=== PATIENT | female | born 1990 | race Caucasian/White ===

== ENCOUNTER → 2020-04-06 09:12 | Outpatient (BNVA) | payer OTHER, SELFPAY | PROVIDERS: Family Provider Registered Nurse; PCP Registered Nurse; Visit Provider Registered Nurse | DX: E03.9 Hypothyroidism, unspecified (principal); R00.2 Palpitations; Z00.00 Encounter for general adult medical examination without abnormal findings | CPT/HCPCS: 84439; 84443; 84480; 85025 ==

== ENCOUNTER → 2021-10-03 08:33 | Outpatient (BNVA) | payer OTHER, SELFPAY | PROVIDERS: Family Provider Registered Nurse; PCP Registered Nurse; Referring Provider Registered Nurse; Visit Provider Internal Medicine | DX: E89.0 Postprocedural hypothyroidism (principal); R00.2 Palpitations; N94.2 Vaginismus; E16.1 Other hypoglycemia; Z86.39 Personal history of other endocrine, nutritional and metabolic disease; Z92.3 Personal history of irradiation | CPT/HCPCS: 99204 ==

== ENCOUNTER 2022-02-10 06:00 | Outpatient (RCR) | payer OTHER, SELFPAY | END 2022-03-11 23:59 | disposition home or self-care (01) | LOC: MPT 06:00 | PROVIDERS: Family Provider Registered Nurse; PCP Registered Nurse; Referring Provider Nurse Practitioner Family; Visit Provider Nurse Practitioner Family | DX: N94.10 Unspecified dyspareunia (principal) | CPT/HCPCS: 97110; 97112; 97161; 97530 ==

== ENCOUNTER 2022-03-12 06:00 | Outpatient (RCR) | payer OTHER, SELFPAY | END 2022-04-11 23:59 | disposition home or self-care (01) | LOC: MPT 06:00 | PROVIDERS: Family Provider Registered Nurse; PCP Registered Nurse; Referring Provider Nurse Practitioner Family; Visit Provider Nurse Practitioner Family | DX: N94.10 Unspecified dyspareunia (principal) | CPT/HCPCS: 20560; 97110; 97112; 97530 ==

== ENCOUNTER 2022-04-12 06:00 | Outpatient (RCR) | payer OTHER, SELFPAY | END 2022-05-11 23:59 | disposition home or self-care (01) | LOC: MPT 06:00 | PROVIDERS: Family Provider Registered Nurse; PCP Registered Nurse; Referring Provider Nurse Practitioner Family; Visit Provider Nurse Practitioner Family | DX: N94.10 Unspecified dyspareunia (principal) | CPT/HCPCS: 20560; 97110; 97112; 97530 ==

== ENCOUNTER 2022-05-12 06:00 | Outpatient (RCR) | payer OTHER, SELFPAY | END 2022-06-11 23:59 | disposition home or self-care (01) | LOC: MPT 06:00 | PROVIDERS: Family Provider Registered Nurse; PCP Registered Nurse; Referring Provider Nurse Practitioner Family; Visit Provider Nurse Practitioner Family | DX: N94.10 Unspecified dyspareunia (principal) | CPT/HCPCS: 20560; 97112; 97530 ==

== ENCOUNTER → 2022-05-18 09:01 | Outpatient (BNVA) | payer OTHER, SELFPAY | PROVIDERS: Family Provider Registered Nurse; PCP Registered Nurse; Visit Provider Registered Nurse | DX: N94.10 Unspecified dyspareunia (principal); N94.2 Vaginismus; E89.0 Postprocedural hypothyroidism; R59.0 Localized enlarged lymph nodes; F41.9 Anxiety disorder, unspecified | CPT/HCPCS: 82627; 82670; 82672; 84270; 84403 ==

== ENCOUNTER 2022-06-12 06:00 | Outpatient (RCR) | payer OTHER, SELFPAY | END 2022-07-12 23:59 | disposition home or self-care (01) | LOC: MPT 06:00 | PROVIDERS: Family Provider Registered Nurse; PCP Registered Nurse; Referring Provider Nurse Practitioner Family; Visit Provider Nurse Practitioner Family | DX: N94.10 Unspecified dyspareunia (principal) | CPT/HCPCS: 97110; 97112; 97530 ==

== ENCOUNTER 2022-07-26 | Outpatient (RCR) | payer OTHER, SELFPAY | END 2022-08-11 23:59 | disposition home or self-care (01) | LOC: MPT | PROVIDERS: Family Provider Registered Nurse; PCP Registered Nurse; Referring Provider Nurse Practitioner Family; Visit Provider Nurse Practitioner Family | DX: N94.10 Unspecified dyspareunia (principal) | CPT/HCPCS: 97110; 97112 ==

== ENCOUNTER 2023-02-23 07:52 | Outpatient (CLI) | payer OTHER, SELFPAY ==
--- NOTE | 2023-02-23 07:45 | US_ITS ---
WS: [id number] PELVIC ULTRASOUND REASON FOR EXAM: N94.10 - Unspecified dyspareunia COMPARISON: None available. ORDER DATE: 02/23/2023 8:02 AM TECHNIQUE: Grayscale and Doppler transabdominal and transvaginal pelvic ultrasound. FINDINGS: Uterus measures 7.6 cm x 4.4 cm x 3.0 cm, having normal echotexture. Endometrium is unremarkable kortney uring 2 mm thick area The right ovary measures 2.4 cm x 1.8 cm x 2.5 cm, and contains several subcentimeter follicles The left ovary measures 2.7 cm x 2.7 cm x 2.4, and contains several follicles and a dominant follicle nearly 14 mm in diameter. There is satisfactory Doppler blood flow in each adnexa. There is a slight increase in cul-de-sac flu id probably physiologic US/US pelv w/transvag [id number] IMPRESSION: Normal uterus. No evidence of adnexal abnormalities with follicles in each ovar y as noted above
== END 2023-02-23 07:53 | disposition home or self-care (01) ==
LOC: RAD 07:57
PROVIDERS: PCP Registered Nurse; Visit Provider Registered Nurse
DX: N94.10 Unspecified dyspareunia (principal); R10.2 Pelvic and perineal pain
CPT/HCPCS: 76830; 76856

== ENCOUNTER → 2023-12-27 07:43 | Outpatient (BNVA) | payer OTHER, SELFPAY | PROVIDERS: PCP Registered Nurse; Visit Provider Internal Medicine | DX: E89.0 Postprocedural hypothyroidism (principal); Z86.39 Personal history of other endocrine, nutritional and metabolic disease; Z92.3 Personal history of irradiation; Z79.890 Hormone replacement therapy | CPT/HCPCS: 99214 ==

== ENCOUNTER → 2024-03-13 08:02 | Outpatient (BNVA) | payer OTHER, SELFPAY | PROVIDERS: PCP Registered Nurse; Visit Provider Internal Medicine | DX: Z86.39 Personal history of other endocrine, nutritional and metabolic disease (principal); Z92.3 Personal history of irradiation; E89.0 Postprocedural hypothyroidism; Z79.890 Hormone replacement therapy | CPT/HCPCS: 99214 ==

== ENCOUNTER 2025-01-03 12:43 | Emergency (ER) | payer OTHER, SELFPAY ==
[2025-01-03 12:46] VITALS: BP 95/61; PULSE 102; RESP 16; TEMP 36.5; O2SAT 98; BMI 22.5
--- NOTE | 2025-01-03 13:39 | USR_ITS ---
PROCEDURE INFORMATION: Exam: US , Limited Exam date and time: 01/03/2025 2:04 PM Age: 34 years old Clinical indication: complicated by abdominal or pelvic pain; Right lower quadrant; Second trimester (14 weeks 0 days to 27 weeks 6 days); Gestational age or lmp: 14w o d; ; Additional info: Rlq abd pain, bloating, cramping, n/v. 14 w LABS AND CLINICAL REPORTS: Gestational age (Established): 13 w 5 d Estimated due date (Established): 07/06/2025 TECHNIQUE: Imaging protocol: Real-time ultrasound of the maternal uterus with image documentation. Exam focused on the clinical indication. COMPARISON: US pelv w/transvag [id number] 02/23/2023 8:16 AM FINDINGS: Gestation: There is a single living intrauterine . heart rate: 187 bpm BIOMETRY: Biparietal diameter (BPD): 2.36 cm. EGA (BPD) is 14 w 0 d. 46.6 % percentile Head circumference (HC): 8.91 cm. EGA (HC) is 14 w 0 d. 36.4 % percentile Femur length (FL): 1.35 cm. EGA (FL) is 14 w 0 d. 55.7 % percentile FL/HC: 15.15 FL/BPD: 57.2 MATERNAL: Cervix: Cervical length measures 3.9 cm. US/[place] limited [id number] IMPRESSION: There is a single living intrauterine with an estimated gestational age of 14 weeks and 0 days.
--- NOTE | 2025-01-03 13:45 | ED_ITS ---
HPI - 2 General: Chief complaint: OB/Uterine Contractions Stated complaint: 14wks Preg. /adom. pain / no bleeding Time Seen by Provider: 01/03/25 13:16 History of Present Illness: josef Ocampo is a 34-year-old female G1, , that presents to the emergency department with abdominal pain. She estimates 14 weeks and does have routine care with Dr. Shirley. Patient reports abdominal pain started last night at 9 PM. It started as epigastric abdominal pain that was crampy in nature. Quickly developed into right sided abdominal pain and now is localized more in the right lower quadrant. She has pain in the abdomen when she flexes and extends her hip flexor. She has rectal pain as well. She denies vaginal pain, suprapubic abdominal pain, vaginal bleeding. She denies fever or chills. She does have nausea but this is unchanged from baseline. She takes Zofran at home for nausea. She did have a bowel movement yesterday but feeling that she was constipated took some mag citrate and had some watery stools today. She states she has a history of gluten intolerance. Did eat gluten yesterday?pasta. Symptoms began after. 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 Associated symptoms: Reports abdominal pain, nausea and vomiting; Deny dysuria, headache(s), malaise or vaginal discharge Related Data Previous Rx's ?Medication ?Instructions ?Recorded estradiol 0.02%/testosterone 0.1% #1 ea 06/13/22 epinephrine 0.3 mg/0.3 mL 0.3 mg (0.3 mL) IM Q4H PRN 0 03/20/24 injection, auto-injector (EpiPen anaphylaxis 30 days # 2 ea 2-Benjie) buspirone 10 mg tablet See Rx Instructions .Route 0 04/22/24 .COMPLEX #45 tabs levothyroxine 100 mcg tablet See Rx Instructions .Rout e 10/20/24 .COMPLEX #90 tabs Allergies Allergy/AdvReac Type Severity Reaction Status Date / Time egg Allergy Unknown Verified 03/20/24 15:59 wheat Allergy Unknown Verified 03/20/24 15:59 Review of Systems 2 General: Reports: 10 or more systems reviewed and unremarkable except in HPI and below Const: Denies: fever(s), chills, change in appetite, change in weight, fatigue or malaise Card: Denies: chest pain or dyspnea on exertion Resp: Denies: dyspnea, productive cough, non-productive cough, wheezing, stridor or chest congestion GI: Reports: abdominal pain, nausea, vomiting, diarrhea, constipation and bloating; Denies: dysphagia, GI cramping or hematochezia : Denies: flank pain, difficulty voiding, dysuria, urinary frequency, urinary urgency, urinary hesitancy, oliguria, hematuria, vaginal bleeding, vaginal discharge or pelvic pain Musc: Denies: neck pain, back pain, extremity pain, joint pain, joint swelling, joint redness, joint warmth or muscle weakness Neuro: Denies: headache(s), numbness in extremities, weakness in extremities, sensory changes, lack of coordination, difficulty walking, frequent falls, dizziness, confusion, Slurred speech present, difficulty communicating thoughts, seizure-like activity or involuntary movements Endo: Denies: polyuria, polydipsia or tired all the time PFSH ED 2 PFSH: Medical History History of radioactive iodine thyroid ablation 2017 Dr. Gan ([facility]) Hypothyroidism Surgical History History of tonsillectomy (~2000) Family History Grandfather No problems noted. Grandmother Diabetes Paternal grandmother Hypertension Paternal grandmother Denies family history of Colon cancer Ovarian cancer Heart disease Hyperlipidemia Breast cancer Family history of thyroid problem Uterine cancer Stroke Social History Smoking and tobacco/nicotine status: never used tobacco/nicotine Alcohol intake: never Substance/Drug Use: never Additional social history: - Tobacco use: Denies Alcohol use: Denies Drug use: Denies Adopted: No Caregiver/support person: No Lives independently: No Household members: spouse Marital status: service: No Current occupational status: employed Sexually active: Yes Do you think of yourself as: Straight/Heterosexual Current gender identity: Female Physical Exam 2 Const: COMMON NORMALS: no acute distress, patient oriented x3 and alert G ENERAL APPEARANCE: cooperative ORIENTATION/CONSCIOUSNESS: Yes awake, Yes oriented to person, Yes oriented to place and Yes oriented to time Neck/C-Spine: COMMON NORMALS: full ROM GENERAL: Yes normal visual inspection Lymph: LYMPHATIC: no lymphadenopathy noted Chest: COMMONS NORMALS: normal inspection of the chest Breast/axilla inspection: Yes no chest deformity, asymmetry, normal contours, no nodules, masses, tenderness Resp: COMMON NORMALS: normal respiratory effort, No retractions, No use of accessory muscles and clear to auscultation bilaterally EFFORT & INSPECTION: Yes able to speak in complete sentences and Yes symmetric chest movement A USCULTATION: clear to auscultation bilaterally Cardio: COMMON NORMALS: regular rate, regular rhythm and Peripheral pulses 2+ throughout RATE: regular rate RHYTHM: regular rhythm PERIPHERAL PULSES: Peripheral pulses 2+ throughout GI: COMMON NORMALS: Soft to palpation and no masses INSPECTION: Yes normal to inspection AUSCULTATION: Yes Hyperactive bowel sounds present P ALPATION: Yes Soft to palpation and Yes Tenderness to palpation present (GI) Details: RLQ (Moderate to severe) and RUQ (Mild) RECTAL EXAM: deferred Extremity: COMMON NORMALS: normal to inspection GENERAL: Yes normal exam except as noted Neuro: COMMON NORMALS: patient oriented x3 SENSORIUM/ORIENTATION: Yes alert, Yes oriented to person, Yes oriented to place and Yes oriented to time CRANIAL NERVES: Yes CN normal except as noted Psych: COMMON NORMALS: mental status grossly normal, Normal thought process present, cooperative, activity/motor behavior normal, denies homicidal ideation and denies suicidal ideation THOUGHT PROCESS: Normal thought process present Skin: COMMON NORMALS: no rashes or lesions noted, no wounds and turgor normal GENERAL SKIN EXAM: no rashes or lesions noted and turgor normal Course 2 Vital Signs: Vital signs: Vital Signs Temperature 97.7 F 01/03/25 12:46 Pulse Rate 74 01/03/25 14:12 Respiratory Rate 16 01/03/25 12:46 Blood Pressure 101/68 01/03/25 14:12 Pulse Oximetry 100 01/03/25 14:12 Oxygen Delivery Me thod Room Air 01/03/25 14:12 MDM - OB/Uterine Contractions Medical Decision Making Patient is a-year-old female that presents to the emergency department with complaints of right-sided abdominal pain. Onset 9 PM last night and progressively worsening through the night. Patient underwent diagnostic evaluation for abdominal pain. Biliary colic, cholecystitis, cholelithiasis, cholangitis, colitis, gastritis, appendicitis, round ligament pain, ectopic , complication Patient's diagnostic evaluation included a CBC, CMP, lipase, beta-hCG, CRP, urinalysis. Patient also underwent ultrasound of the appendix as well as the pelvis. The CBC reveals no leukocytosis anemias or thrombocytopenia. The CMP reveals no significant electrolyte abnormality, normal renal function, normal liver function. No evidence of dehydration. Lipase within normal limits CRP is mildly elevated. It is 13.5 with a normal range of 0-4. But I am not finding a source. She has no bacteria in her urine. She has no fevers chills. The ultrasound of her pelvis and appendix were within normal limits. Ultrasound shows she is 13 weeks 5 days. Patient and I discussed diagnostic and laboratory findings. At this point I do not have an answer for her although I do not believes that she has appendicitis. Furthermore I do not think she has any abdominal pathologies going on her currently normal white counts and CRP of 13. However, I did explain to the patient that it could be early on in a process and if she is not getting better or she is getting worse, she needs to be reevaluated. Patient is agreeable so is her . They are to return to the emergency department as needed I also want him to follow-up with her primary APARTMENT MAINTENANCE WORKER Sunday. Lab Data 01/03/25 14:02 01/03/25 14:02 Radiology Impressions Obstetrics Ultrasound 01/03/25 13:39 IMPRESSION: There is a single living intrauterine with an estimated gestational age of 14 weeks and 0 days. Appendix Ultrasound 01/03/25 14:14 IMPRESSION: No acute findings. Laboratory Results WBC 11.20 10^3/uL (3.29-11.43) 01/03/25 14:02 RBC 4.04 10^6/uL (3.85-5.65) 01/03/25 14:02 Hgb 13.10 g/dL (11.27-16.99) 01/03/25 14:02 Hct 37.4 % (36-47) 01/03/25 14:02 MCV 92.6 fl (85-98) 01/03/25 14:02 MCH 32.4 pg (27-33) 01/03/25 14:02 MCHC 35.0 g/dL (30-55) 01/03/25 14:02 RDW 12.4 % (12.1-15.1) 01/03/25 14:02 Plt Count 234 10^3/cmm (157-399) 01/03/25 14:02 MPV 9.9 fL (7.4-10.4) 01/03/25 14:02 Neut % (Auto) 78.9 % 01/03/25 14:02 Lymph % (Auto) 10.9 % 01/03/25 14:02 [place] % (Auto) 7.9 % 01/03/25 14:02 Eos % (Auto) 1.6 % 01/03/25 14:02 Baso % (Auto) 0.3 % 01/03/25 14:02 Neut # (Auto) 8.84 10^3/uL (1.8-7.7) H 01/03/25 14:02 Lymph # (Auto) 1.2 10^3/uL (0.8-4.8) 01/03/25 14:02 [place] # (Auto) 0.9 10^3/uL (0.2-0.9) 01/03/25 14:02 Eos # (Auto) 0.2 10^3/uL (0.0-0.8) 01/03/25 14:02 Baso # (Auto) 0.0 10^3/uL (0.0-0.1) 01/03/25 14:02 Nucleated RBC % (auto) 0 % 01/03/25 14:02 Nucleated RBCs # 0.0 /100WBC 01/03/25 14:02 Sodium 134 mmol/L (136-145) L 01/03/25 14:02 Potassium 3.6 mmol/L (3.5-5.1) 01/03/25 14:02 Chloride 102 mmol/L (98-107) 01/03/25 14:02 Carbon Dioxide 21 mmol/L (22-29) L 01/03/25 14:02 Anion Gap 14.6 (5-19) 01/03/25 14:02 BUN 8 mg/dL (6-20) 01/03/25 14:02 Creatinine 0.5 mg/dL (0.5-0.9) 01/03/25 14:02 GFR Calculation 143.0 mL/min (90-130) H 01/03/25 14:02 Glucose 69 mg/dL (65-115) 01/03/25 14:02 Calculated Osmolality 275 mOsm/kg (285-295) L 01/03/25 14:02 Calcium 9.1 mg/dL (8.5-10.5) 01/03/25 14:02 Total Bilirubin 0.2 mg/dL (0.15-1.2) 01/03/25 14:02 AST 15 U/L (0-32) 01/03/25 14:02 ALT 11 U/L (0-33) 01/03/25 14:02 Alkaline Phosphatase 46 U/L (35-105) 01/03/25 14:02 C-Reactive Protein 13.5 mg/L (0.0-4.9) H 01/03/25 14:02 Total Protein 6.8 g/dL (6.6-8.7) 01/03/25 14:02 Albumin 3.9 g/dL (3.5-5.2) 01/03/25 14:02 Globulin 2.9 g/dL (1.3-4.6) 01/03/25 14:02 Lipase 23 U/L (13-60) 01/03/25 14:02 Ser , Semi-Qnt 85259.00 mIU/mL 01/03/25 14:02 Urine Color Yellow (Yellow) 01/03/25 14:56 Urine Appearance Clear (CLEAR) 01/03/25 14:56 Urine pH 6.5 (5-7) 01/03/25 14:56 Ur Specific [place] 1.024 (1.005-1.030) 01/03/25 14:56 Urine Protein Negative (Negative) 01/03/25 14:56 Urine Glucose (UA) Negative (Normal) 01/03/25 14:56 Urine Ketones Trace (Negative) 01/03/25 14:56 Urine Blood Negative (Negative) 01/03/25 14:56 Urine Nitrate Negative (Negative) 01/03/25 14:56 Urine Bilirubin Negative (Negative) 01/03/25 14:56 Urine Urobilinogen 0.2 mg/dL (Negative) 01/03/25 14:56 Ur Leukocyte Esterase Negative (Negative) 01/03/25 14:56 Amorphous Sediment Not Reportable 01/03/25 14:56 Blood Type O Positive 01/03/25 14:02 Rho(D) Type Rh positive 01/03/25 14:02 All radiology interpretation(s) finalized by discharge Discharge Plan Discharge Patient Disposition: Home Clinical Impression: Condition: Stable Prescriptions: No Action epinephrine [EpiPen 2-Benjie] 0.3 mg/0.3 mL auto-injector 0.3 mg IM Q4H PRN (Reason: anaphylaxis) 30 Days Qty: 2 0RF Rx Instructions: 340B (DME) estradiol 0.02%/testosterone 0.1% See Rx Instructions .Route .MEDSUPPLY Qty: 1 0RF Rx Instructions: Apply pea sized amount daily (right and left side), direction onto entire vestibule. buspirone 10 mg tablet See Rx Instructions .ROUTE .COMPLEX Qty: 45 0RF Dose Instruction: Take 1 tablet by mouth twice daily as needed for anxiety Rx Instructions: Take 1 tablet by mouth twice daily as needed for anxiety levothyroxine 100 mcg tablet See Rx Instructions .ROUTE .COMPLEX Qty: 90 0RF Dose Instruction: Take 1 tablet by mouth once daily Rx Instructions: Take 1 tablet by mouth once daily Discharge Orders: Discharge ED (Routine); Ordered 01/03/25 Ordered By: Janice Dumont Referrals: Alex Fenton FNP [Primary Care Provider] - Discharge Diet: Advance as tolerated Discharge Activity: Resume usual activity Patient Instructions: Abdominal Pain in (ED), Pain Management Activity Restrictions/Additional Instructions: As discussed, if your pain is not getting better or if you are getting worse, I want you to come back to the emergency department for reevaluation. Please follow-up with APARTMENT MAINTENANCE WORKER on Sunday. Print Language: Maori Coding Level of Care Code ED Adult Psychiatrist for Flory Goss
[2025-01-03 14:08] LABS: Basophils % 0.3 %; Eosinophils # 0.2 10^3/uL (0.0-0.8); Eosinophils % 1.6 %; Hematocrit 37.4 % (36-47); Lymphocytes # 1.2 10^3/uL (0.8-4.8); Lymphocytes % 10.9 %; Mean Corpuscular Hemoglobin 32.4 pg (27-33); Mean Corpuscular Volume 92.6 fl (85-98); Mean Platelet Volume 9.9 fL (7.4-10.4); Monocytes # 0.9 10^3/uL (0.2-0.9); Monocytes % 7.9 %; Neutrophils # 8.84 10^3/uL (1.8-7.7); Neutrophils % 78.9 %; Nucleated Red Blood Cells % 0 %; Platelet Count 234 10^3/cmm (157-399); Red Blood Count 4.04 10^6/uL (3.85-5.65); Red Cell Distribution Width 12.4 % (12.1-15.1)
[2025-01-03] MEDS: sodium chloride 0.9% 1,000 ML 999 ML IV (14:08)
[2025-01-03 14:12] VITALS: BP 101/68; PULSE 74; O2SAT 100
--- NOTE | 2025-01-03 14:14 | USR_ITS ---
PROCEDURE INFORMATION: Exam: US Abdomen, Limited; Appendix Exam date and time: 01/03/2025 2:18 PM Age: 34 years old Clinical indication: Abdominal pain; Acute; ; Additional info: Rlq pain TECHNIQUE: Imaging protocol: Real time ultrasound of the abdomen with image documentation. Limited exam focused on the appendix. COMPARISON: US OB limited [id number] 01/03/2025 2:04 PM FINDINGS: Appendix: The appendix is not seen. No free fluid or mass is identified in the right lower quadrant. US/US appendix [id number] IMPRESSION: No acute findings.
[2025-01-03 14:54] LABS: Alanine Aminotransferase 11 U/L (0-33); Albumin Level 3.9 g/dL (3.5-5.2); Alkaline Phosphatase 46 U/L (35-105); Anion Gap 14.6 (5-19); Aspartate Amino Transferase 15 U/L (0-32); Blood Urea Nitrogen 8 mg/dL (6-20); C Reactive Protein 13.5 mg/L (0.0-4.9); Calcium 9.1 mg/dL (8.5-10.5); Carbon Dioxide 21 mmol/L (22-29); Chloride 102 mmol/L (98-107); Creatinine Clr Calc Pharmacy 160.8713; Globulin 2.9 g/dL (1.3-4.6); Glucose 69 mg/dL (65-115); Lipase 23 U/L (13-60); Osmolality Calculated 275 mOsm/kg (285-295); Potassium 3.6 mmol/L (3.5-5.1); Sodium 134 mmol/L (136-145); Total Bilirubin 0.2 mg/dL (0.15-1.2); Total Protein 6.8 g/dL (6.6-8.7)
[2025-01-03 15:05] LABS: Add Urine Microscopic? NO
[2025-01-03 15:08] LABS: Bilirubin Urine Negative (Negative); Blood Urine Negative (Negative); Glucose Urine UA Negative (Normal); Ketones Urine Trace (Negative); Leukocyte Esterase Urine Negative (Negative); Nitrate Urine Negative (Negative); Protein Urine Negative (Negative); Specific Gravity, Urine 1.024 (1.005-1.030); Urine Appearance Clear (CLEAR); Urine Color Yellow (Yellow); Urobilinogen Urine 0.2 mg/dL (Negative); pH Urine 6.5 (5-7)
[2025-01-03 15:18] LABS: Charge for UA Resulting for Rev
[2025-01-03 16:54] VITALS: BP 103/57; PULSE 71; O2SAT 99
== END 2025-01-03 16:57 | disposition home or self-care (01) ==
PROVIDERS: Emergency Provider Nurse Practitioner; PCP Registered Nurse
DX: O26.892 Other specified pregnancy related conditions, second trimester (principal); Z3A.14 14 weeks gestation of pregnancy
CPT/HCPCS: 36415; 76705; 76815; 80053; 81003; 83690; 84702; 85025; 86140; 86900; 99284; J7030

== ENCOUNTER 2025-04-16 08:53 | Outpatient (CLI) | payer OTHER, SELFPAY ==
[2025-04-16 08:53] VITALS: BMI 25.5
[2025-04-16 09:06] VITALS: BP 120/71; PULSE 73
[2025-04-16 09:19] VITALS: BP 114/68; PULSE 75
[2025-04-16 09:34] VITALS: BP 108/66; PULSE 77
[2025-04-16 09:38] LABS: Bilirubin Urine Negative (Negative); Blood Urine 2+ (Negative); Glucose Urine UA Negative (Normal); Ketones Urine Negative (Negative); Leukocyte Esterase Urine 2+ (Negative); Nitrate Urine Negative (Negative); Protein Urine Trace (Negative); Specific Gravity, Urine 1.017 (1.005-1.030); Urine Appearance Cloudy (CLEAR); Urine Color Yellow (Yellow)
[2025-04-16 09:43] LABS: Bacteria Urine 4+ /hpf; Hyaline Casts Urine 4.95 /lpf; RBC Urine >100 /hpf (0-2); WBC Urine 51-100 /hpf (0-5)
[2025-04-16 09:49] VITALS: BP 116/73; PULSE 71
[2025-04-16 10:03] LABS: UA Slide Review UA Slide Review Perf
[2025-04-16 10:06] LABS: Add Urine Culture? Yes
== END 2025-04-16 10:05 | disposition home or self-care (01) ==
LOC: OPOB 08:53 → OBGYN 08:55
PROVIDERS: PCP Registered Nurse; Visit Provider Family Medicine
DX: O26.859 Spotting complicating pregnancy, unspecified trimester (principal); Z3A.00 Weeks of gestation of pregnancy not specified; R25.2 Cramp and spasm
CPT/HCPCS: 59025; 81001; 87086; 99211

== ENCOUNTER 2025-07-08 08:00 | Inpatient (IN) | payer OTHER, SELFPAY ==
[2025-07-07 23:21] VITALS: BMI 28.1
[2025-07-07 23:33] VITALS: BP 126/74; PULSE 71
[2025-07-07 23:53] VITALS: BP 110/74; PULSE 84
[2025-07-08] VITALS (73 sets, daily range): BP systolic 85–145; BP diastolic 39–81; PULSE 58–119; RESP 16–18; TEMP 36.2–36.7; O2SAT 98–100
[2025-07-08] MEDS: penicillin g potassium 5,000,000 UNIT in sodium chloride 0.9% (plus) 100 ML 100 UNIT IV (01:30)
[2025-07-08 01:33] LABS: Hematocrit 38.5 % (36-47); Hemoglobin 13.60 g/dL (11.27-16.99); Mean Corpuscular HGB Conc 35.3 g/dL (30-55); Mean Corpuscular Hemoglobin 32.2 pg (27-33); Mean Corpuscular Volume 91.0 fl (85-98); Nucleated Red Blood Cells % 0 %; Platelet Count 241 10^3/cmm (157-399); Red Blood Count 4.23 10^6/uL (3.85-5.65); White Blood Count 12.72 10^3/uL (3.29-11.43)
[2025-07-08] MEDS: PENICILLIN G POTASSIUM 2,500,000 UNIT/50 ML BAG 50 UNIT IV ×2 (07:54→11:51)
[2025-07-08] MEDS: oxytocin 30 UNIT/500 ML BAG IV (08:12)
--- NOTE | 2025-07-08 08:21 | PM.OPHPUD ---
Labor & Delivery H&P Update Date of Procedure: July 08, 2025 Date H&P Performed: 07/07/25 Admission Diagnosis: SROM IUP at 40w3d Planned procedure: Expectant management of labor and delivery
[2025-07-08] MEDS: ROPivacaine syringe 100 MG/50 ML SYRINGE 10 MG EPIDURAL ×2 (09:32→13:02)
--- OUTSIDE RECORDS SUMMARY | 2025-07-08 09:43 | XMS_ITS | Clinical Summary ---
Author Organization [facility] Address [address] Attn: Epic Prelude ADT SIVA THOMAS [id number] Care Team Providers Care Dye Operator Name Role Phone Alex Fenton RAMON Primary Care Provider Allergies Active Allergy Reactions Criticality Noted Date Comments Egg White Headache Low 11/08/2017 Shellfish Containing Products Swelling Low 2015 Wheat Constipation Low 01/17/2022 Medications levothyroxine 100 mcg tablet Take 100 mcg by mouth daily. 12/13/2021 Active levothyroxine 100 mcg tabletIndicatio ns:Hypothyroidi sm (acquired) Take 1 Tablet (100 mcg) by mouth daily airport screener. 90 Tablet 3 11/08/2017 Active lidocaine (XYLOCAINE) 2 % jelly Apply 5 mL to affected area 4 times daily as needed for Pain, Mild. 30 mL 2 03/30/2022 Active Active Problems Problem Noted Date Diagnosed Date S/P radioactive iodine thyroid ablation 03/02/20 17 Graves disease 07/21/2016 Weight gain 07/21/2016 Hyperthyroidism 03/08/2016 Palpitations 03/08/2016 Goiter 03/08/2016 Family History Medical History Relation Name Comments Thyroid Disease Mother Diabetes Paternal Grandmother Heart Disease Paternal Grandmother Hypertension Paternal Grandmother Relation Name Status Comments Mother Paternal Grandmother Social History Tobacco Use Types Packs/Day Years Used Date Smoking Tobacco: Never Smokeless Tobacco: Never Alcohol Use Standard Drinks/Week Comments No 0 (1 standard drink = 0.6 oz pur e alcohol) Comments No Sex and Gender Information Value Date Recorded Sex Assigned at Not on file Legal Sex Female 10:14 AM BOTTLE BOOTH ATTENDANT Gender Identity Not on file Sexual Orientation Not on file Last Filed Vital Signs Vital Sign Reading Time Taken Comments Blood Pressure 122/82 01/17/2022 2:30 PM BOTTLE BOOTH ATTENDANT Pulse 68 11/08/2017 10:44 AM BOTTLE BOOTH ATTENDANT Temperature - - Respiratory Rate - - Oxygen Saturation - - Inhaled Oxygen Concentration - - Weight 63 kg (139 lb) 01/17/2022 2:30 PM BOTTLE BOOTH ATTENDANT Height 172.7 cm (5' 8 ) 01/17/2022 2:30 PM BOTTLE BOOTH ATTENDANT Body Mass Index 21.13 01/17/2022 2:30 PM BOTTLE BOOTH ATTENDANT Plan of Treatment Health Maintenance Due Date Last Done Comments DTAP/TDAP/TD VACCINES (1 - Tdap) 2011 HEPATITIS B VACCINES (1 of 3 - 19+ 3-dose series) 06/2012 HPV/Cotest (21-29) 2013 HPV VACCINES (1 - 3-dose SCDM series) 2019 HPV/Cotest (30-65) 2022 CERVICAL CANCER SCREENING 01/17/2025 PAP SMEAR 01/17/2025 01/17/2022 INFLUENZA VACCINE (#1) 2025 Procedures Procedure Name Priority Date/Time Associated Diagnosis Comments CERV/VAG CYTO AGE BASED SCREEN PAP Routine 01/17/2022 3:22 PM BOTTLE BOOTH ATTENDANT Screening for cervical cancer from Last 3 Months or Most Recently Relevant to Health Maintenance Results * CERV/VAG CYTO AGE BASED SCREEN PAP (01/17/2022 3:22 PM BOTTLE BOOTH ATTENDANT) SEE NOTE [facility] Comment: This order for age-based cervical cancer and STI screening follows ACOG guidelines(PB 168, 140, YBL857). See individual assays for performing site location. CLINICAL INFORMATION [facility] Comment:Information not prov ided LAST MENSTRUAL PERIOD [facility] Comment:INFORMATION NOT PROV IDED PREV PAP: [facility] Comment:INFORMATION NOT PROV IDED PREV BX: [facility] Comment:INFORMATION NOT PROV IDED SOURCE [facility] Comment:Endocervix ADEQUACY: [facility] Comment: Satisfactory for evaluation. Endocervical/transformation zone component present. Age and/or menstrual status not provided PAP INTERP [facility] Comment:Negative for intraep ithelial lesion or malignancy. COMMENT (PAP TEST) [facility] Comment: This Pap test has been evaluated with computer assisted technology. CORPORATE PHYSICAL SECURITY SUPERVISOR: [facility] Comment: KETAN BUSH(ASCP) CT screening location: [place] [address] [place] [address] SEE NOTE [facility] Comment: EXPLANATORY NOTE: The Pap is a screening test for cervical cancer. It is not a diagnostic test and is subject to false negative and false positive results. It is most reliable when a satisfactory sample, regularly obtained, is submitted with relevant clinical findings and history, and when the Pap result is evaluated along with historic and current clinical information. Test Performed at: [place] [address] [place] [address] [place] [facility] Genital SWAB OF ENDOCERVIX / Unknown 01/17/2022 3:22 PM BOTTLE BOOTH ATTENDANT 01/18/2022 8:15 AM BOTTLE BOOTH ATTENDANT us Rhonda NAVARRO PATHOLOGY/CYTOLOGY ORDERABLES Final Result [facility] [address] [place] [address] from Last 3 Months or Most Recently Relevant to Health Maintenance Insurance [facility] OPEN ACCESS HMO Care Teams Dye Operator Relationship Specialty Start Date End Date Alex Fenton FNP [address] [place] [id number] PCP - General NURSE PRACTITIONER 10/20/16
--- OUTSIDE RECORDS SUMMARY | 2025-07-08 09:43 | XMS_ITS | Patient Health Record ---
Author Organization [facility] Address [address] [place] [id number] Care Team Providers Care Clinical Support Associate Name Role Phone Alex Alvarado Primary Care Provider Un available Mehreen Jeronimo Unavailable [phone] Allergies No Known Allergies Reason For Referral No Information Medications Medication SIG (Take, Route, Frequency, Duration) Notes Start Date End Date Status ABG Suppository Amitriptyline 2%/Baclofen 2%/ Gabapentin 2% insert 1 suppository vaginal up to three times daily / PRN pelvic pain - start at bedtime before intercourse; Duration: 10 days 02/15/2023 Active Levothyroxine Sodium 100 MCG 1 tablet in the morning on an empty stomach Orally Once a day; Duration: 30 day(s) Active busPIRone HCl 10 MG 1 tablet Orally Twic e a day Active ABGL Amitriptyline 2%,Baclofen 2%,Gabapentin 2%.Lidocaine2% Apply external to area topical three times per day / PRN pain - use prior to dilator use or attempted intercourse; Duration: 30 days 02/15/2023 Active Social History Tobacco Use: Social History Observation Description Date Details (start date - stop date) Never Smoker NA - NA Tobacco Use/Smoking Question Answer Notes Are you a nonsmoker Alcohol Screen Question Answer Notes Did you have a drink containing alcohol in the p ast year? No Points 0 Interpretation Negative Tobacco use other than smoking: Question Answer Notes Are you an other tobacco user? No Problems Problem Type SNOMED Code ICD Code Onset Dates Problem Status W/U Status Risk Notes Problem Spasm (77466323) Contracture of muscle, unspecified site (M62.40) Active confirmed Problem Vaginospasm (33895424) Vaginismus (N94.2) Active confirmed Problem Vulvar vestibulitis (56082525) Vulvar vestibulitis (N94.810) Active confirmed Problem Dyspareunia (96334582) Other specified dyspareunia (N94.19) Active confirmed Plan Of Treatment No Information Insurance Providers Payer Name Payer Address Payer Phone Subscriber Number Group Number Insured Name Patient Relationship to Insured Coverage Start Date Coverage End Date [employer] [address] [place], [place] [phone] [id number] Kanika Ocampo Self - patient is the insured Medical (General) History Medical History History ICD Code Thyroid Disease Surgical History Surgery Date(Month/Year) tonsillectomy 2003
--- NOTE | 2025-07-08 11:32 | ANES.PREANE2 ---
Pre-Anesthetic Assessment Height/Weight: Height 5 ft 7 in Weight 180 lb Pulse Resp BP Pulse Ox O2 Del Method 78 16 111/67 100 Room Air 07/08/25 11:18 07/08/25 00:27 07/08/25 11:18 07/08/25 11:00 07/08/25 01:52 Preop Diagnosis: Active labor Social No alcohol and No tobacco Exam alert, oriented x 3, clear to auscultation bilaterally and regular rate & rhythm Airway Submandibular: within normal limits Cervical ROM: within normal limits Mallampati: Class II Dentition: full Anesthetic Plan ASA status: 2 Anesthesia: Regional (specify below) Other: No problems with anesthesia G1, P0 here in active labor Hypothyroidism on Synthroid Denies any issues during Labs reviewed and acceptable for procedure Plan for routine epidural placement Medications/Allergies Home Medications ?Medication ?Instructions ?Recorded ?Confirmed ?Last Taken ?Type estradiol 0.02%/testosterone 0.1% #1 ea 06/13/22 01/06/25 Unknown Rx epinephrine 0.3 mg/0.3 mL 0.3 mg (0.3 mL) IM Q4H PRN 03/20/24 01/06/25 Unknown Rx injection, auto-injector (EpiPen anaphylaxis 30 days #2 ea 2-Benjie) buspirone 10 mg tablet See Rx Instructions .Route 04/22/24 01/06/25 Unknown Rx .COMPLEX #45 tabs levothyroxine 100 mcg tablet See Rx Instructions .Route 10/20/24 01/06/25 Unknown Rx .COMPLEX #90 tabs Allergies Allergy/AdvReac Type Severity Reaction Status Date / Time egg Allergy Unknown Verified 07/08/25 01:49 wheat Allergy Unknown Verified 07/08/25 01:49 Current Medications Generic Name Dose Route Start Last Admin Trade Name Freq PRN Reason Stop Dose Admin Dextrose/Lactated Ringer's 1,000 mls @ 125 mls/hr 07/08/25 00:30 07/08/25 01:30 Dextrose 5%-Lactated Ringers IV 125 mls/hr .Q8H FELIPE Administration Penicillin G Potassium 2,500,000 unit in 50 mls @ 50 mls/hr 07/08/25 04:30 07/08/25 07:54 IV 50 mls/hr Q4H FELIPE Administration Protocol Oxytocin 30 unit in 500 mls @ 1 mls/hr 07/08/25 08:15 07/08/25 08:12 Pitocin IV 2 milliunit/min .Q24H FELIPE 2 mls/hr Protocol Administration 1 MILLIUNIT/MIN Ropivacaine 100 mg in 50 mls @ 10 mls/hr 07/08/25 09:00 07/08/25 09:32 Naropin Syringe EPIDURAL 10 mls/hr .Q5H FELIPE Administration Sodium Chloride 1,000 mls @ 999 mls/hr 07/08/25 08:58 07/08/25 09:31 Sodium Chloride 0.9% IV 07/09/25 00:00 999 mls/hr .Q1H1M PRN Administration See label comments [facility] Anesthesia Medical History (Updated 01/11/25 @ 00:00 by ARIANA De Los Santos) History of radioactive iodine thyroid ablation 2016 Dr. Gan ([facility]) Hypothyroidism Surgical History History of tonsillectomy (~2000) Family History Grandfather No problems noted. Grandmother Diabetes Paternal grandmother Hypertension Paternal grandmother Denies family history of Colon cancer Ovarian cancer Heart disease Hyperlipidemia Breast cancer Family history of thyroid problem Uterine cancer Stroke Social History Smoking and tobacco/nicotine status: never used tobacco/nicotine Alcohol intake: never Substance/Drug Use: never Additional social history: - Tobacco use: Denies Alcohol use: Denies Drug use: Denies Adopted: No Caregiver/support person: No Lives independently: No Household members: spouse Marital status: service: No Current occupational status: employed Sexually active: Yes Do you think of yourself as: Straight/Heterosexual Current gender identity: Female Female Reproductive History : 1 Data Anesthesia 07/08/25 01:22 Short CBC 07/08/25 Range/Units 01:22 WBC 12.72 H (3.29-11.43) 10^3/uL Hgb 13.60 (11.27-16.99) g/dL Hct 38.5 (36-47) % MCV 91.0 (85-98) fl Plt Count 241 (157-399) 10^3/cmm Neut % (Auto) 79.4 % Neut # (Auto) 10.12 H (1.8-7.7) 10^3/uL Blood Bank 07/08/25 01:22 Blood Type O Positive Rho(D) Type Rh positive Antibody Screen Positive Cardiac Studies: Cardiac Event Monitor 03/25/24
--- NOTE | 2025-07-08 11:33 | ANES.PROC ---
Anesthesia Procedures Procedure/Date: 07/08/25 Epidural: Time Out Performed: Yes Consents Signed: Procedure Consent and NPO Consent Consent: from patient Lumbar Level: L3-L4 Epidural position: sitting Epidural procedure: sterile prep of area, 1% lidocaine to numb the area, 18 g needle, negative for paresthesia passed, neg for paresthesia, test dose given, 1.5% xylocaine 1:200k epi, 0.2% Ropivacaine bolus ml, placed PCEA, no systemic response, sterile dressing applied, L.U.D. no apparent complications and 0.2% Ropiavacaine @ mls/hr Additional Comments: Loss of resistance around 7 cm. Catheter left at 15 cm to the skin. 0.2% ropivacaine set at 13 mL/h. Patient tolerated procedure very well
[2025-07-08] MEDS: ondansetron 2 mg/ML SDV 2 mL 4 MG IVP (12:33)
[2025-07-08] MEDS: metoclopramide 5 mg/mL SDV 2 mL 10 MG IV (15:15)
--- NOTE | 2025-07-08 17:56 | PM.OP ---
Operative Report Date of procedure: July 08, 2025 Pre-op diagnosis: Nonreassuring heart tones Failure to progress Post-op diagnosis: Same Procedure done: Primary low-transverse section Via Pfannenstiel skin incision Specimens removed/disposition: Vertex male weight 3555 g, Apgars 9 and 9 Surgeon: Lorelei Shirley MD Estimated blood loss (mL): 400 IV fluids (mL): 700 Urine output (mL): 400 Complications: None Procedure: After informed consent the patient was taken to the OR where adequate epidural anesthesia was verified. She was prepped and draped in normal sterile fashion in dorsal supine position with a left lateral tilt. A Pfannenstiel skin incision was made and carried through to the underlying layer of fascia sharply. The fascial incision was extended laterally using the Mayos. The fascia was then grasped with Tim clamps and the underlying rectus muscles were dissected off taking care to avoid injury to the underlying tissue. The peritoneum was then entered bluntly and the incision site was manually stretched. The bladder blade was inserted. Vesicouterine peritoneum was identified and entered sharply using the Metzenbaums. Bladder flap was then created digitally and the bladder blade was then reinserted. Uterine incision was made in a transverse fashion in the lower uterine segment. Amniotic rupture of membranes was performed bluntly with meconium stained fluid. The was delivered atraumatically with bulb suction of the mouth and nares at delivery. The cord was clamped and cut. The infant was handed to the waiting pediatric nurse. The placenta was then delivered using fundal pressure. The uterus was then exteriorized from the abdomen and a dry sponge was used to clear the uterus of clots and debris. The uterine incision was repaired using 0 chromic in a running locked fashion. A second layer of the same suture was used in an imbricating manner. There were some tiny bleeders on the vesicouterine peritoneum that were coagulated using the Bovie. The uterus was then returned to the abdomen and irrigation was used to clear the gutters of clots and debris. The uterine incision was then reinspected for hemostasis. The peritoneum was then reapproximated using 4-0 Vicryl in a running fashion. The rectus muscles were gently reapproximated using 1 figure of 8 suture of 0 chromic. The subfascial tissue was inspected for hemostasis and the fascia was then reapproximated using 0 Vicryl in a running fashion. The subcutaneous tissue was then irrigated and inspected for hemostasis. The subcutaneous tissue was reapproximated using 4-0 Vicryl in a running fashion. The skin was then reapproximated using 4-0 Vicryl in a running fashion on a James needle. Steri-Strips and a pressure bandage were applied and patient went to recovery in stable condition. Sponge instrument and needle counts were correct.
--- NOTE | 2025-07-08 18:42 | P.ANESUD_ITS ---
Pre-Anesthetic Update Pre-Anesthetic Assessment: Date of Surgery/Procedure: 07/08/25 Preop Justine gnosis: Active labor Proposed Procedure: I was called around 1625 and informed that patient was having D cells needing emergent . Patient stated that epidural was working great. Last dose of Zofran was 1-1/2 hours ago. Plan on preop Pepcid. Plan to proceed with emergent with plans of using epidural Labs Last 48hrs: Short CBC 07/08/25 Range/Units 01:22 WBC 12.72 H (3.29-11.43) 10^ 3/uL Hgb 13.60 (11.27-16.99) g/ dL Hct 38.5 (36-47) % MCV 91.0 (85-98) fl Plt Count 241 (157-399) 10^3/c mm Neut % (Auto) 79.4 % Neut # (Auto) 10.12 H (1.8-7.7) 10^3/u L Blood Bank 07/08/25 01:22 Blood Type O Positive Rho(D) Type Rh positive Antibody Screen Positive Vitals: Pulse Rate 85 07/08/25 18:32 Pulse Rhythm Regular 07/08/25 01:52 Pulse Strength 3+ Normal 07/08/25 01:52 Respiratory Rate 16 07/08/25 00:27 Respiratory Effort Spontaneous, Non- Labored 07/08/25 08:00 Respiratory Depth Normal 07/08/25 08:00 Respiratory Patter n Normal 07/08/25 08:00 Blood Pressure 114/75 07/08/25 18:32 Pulse Oximetry 100 07/08/25 11:00 Oxygen Delivery Me thod Room Air 07/08/25 01:52 Cardiac Studies: Cardiac Event Monitor 03/25/24
--- NOTE | 2025-07-08 18:43 | ANE.PACU2 ---
Inpatient post-anesthesia follow up: Airway intact: Yes Vital signs: Temperature Pulse Rate 85 Respiratory Rate 16 Blood Pressure 114/75 Pulse Oximetry 100 Oxygen Delivery Me thod Room Air Oxygen Flow Rate Fraction of Inspir ed Oxygen Hydration adequate: Yes Nausea and vomiting: No Pain level: 1 Mental status: Baseline
--- NOTE | 2025-07-08 20:11 | PC.NURSE ---
REMAINS IN OR RECOVERY TILL 182
[2025-07-09] VITALS (7 sets, daily range): BP systolic 90–120; BP diastolic 52–75; PULSE 63–116; RESP 18; TEMP 35.7–36.7
[2025-07-09] MEDS: HYDROcodone-acetaminophen 5-325 mg Tablet PO (05:40)
[2025-07-09 05:48] LABS: Hematocrit 32.3 % (36-47); Hemoglobin 11.20 g/dL (11.27-16.99); Mean Corpuscular HGB Conc 34.7 g/dL (30-55); Mean Corpuscular Hemoglobin 32.6 pg (27-33); Mean Corpuscular Volume 93.9 fl (85-98); Platelet Count 183 10^3/cmm (157-399); Red Blood Count 3.44 10^6/uL (3.85-5.65); White Blood Count 11.72 10^3/uL (3.29-11.43)
--- NOTE | 2025-07-09 08:29 | ANE.PACU2 ---
Inpatient post-anesthesia follow up: Airway intact: Yes Vital signs: Temperature 98.0 F Pulse Rate 65 Respiratory Rate 18 Blood Pressure 111/66 Pulse Oximetry 100 Oxygen Delivery Me thod Room Air Oxygen Flow Rate Fraction of Inspir ed Oxygen Hydration adequate: Yes Nausea and vomiting: No Pain level: 1 Mental status: Baseline Epidural Start/End: Epidural Start Date: 07/08/25 Epidural Start Time: 10:20 Epidural End Date: 07/08/25 Epidural End Time: 19:58
--- NOTE | 2025-07-09 16:31 | PM.PN ---
Subjective Subjective: Postop day 1 primary section She is doing well, she has ambulated and is now passing flatus, pain is controlled and the bleeding seems about average. Vitals/I&O/Wt Last Vital Signs Temp 96.3 F L 07/09/25 09:39 Pulse 81 07/09/25 09:39 Resp 18 07/09/25 10:00 BP 114/59 07/09/25 09:39 Pulse Ox 100 07/08/25 18:20 O2 Del Method Room Air 07/08/25 01:52 07/09/25 07/09/25 07/09/25 06:59 14:59 22:59 Intake Total 100 / 100 Output Total 250 / 1100 1600 / 1600 Balance -250 / 22.6 -1500 / -1500 Weight last 48 hrs Weight 81.647 kg Physical Exam Narrative: Alert and oriented, sitting up at bedside, heart regular rate and rhythm, lungs clear to auscultation bilaterally, abdomen is soft with appropriate postoperative tenderness, pressure bandage is still in place over the incision. Extremities have no swelling and no calf tenderness Urinary Catheter Management: Galindo: Cath Placed During This Visit: yes, but has since been removed by the nurse Reason for Continuing Indwelling Catheter: Decision to DC Catheter Urinary Catheter Date of Insertion: 07/08/25 Urinary Catheter Time of Insertion: 10:50 Date Urinary Catheter Removed: 07/09/25 Time Urinary Catheter Discontinued: 08:30 Data 07/09/25 05:35 A&P Assessment and plan 1. Delivery by section of full-term infant: Continue routine postoperative care. Tonight she should remove the pressure bandage when she takes a shower. PDMP PDMP Reviewed: Not Reviewed Attestations Medical Necessity Statement*: Routine postoperative and care Coding Level of Care Code Acute Code for Chg Fwd Diagnoses Delivery by section of full-term infant O82
[2025-07-09] MEDS: petrolatum oint Pkt 5 gm 1 APPLIC TOPICAL (21:10)
[2025-07-10] MEDS: HYDROcodone-acetaminophen 5-325 mg Tablet PO ×2 (03:50→11:17)
[2025-07-10 04:10] VITALS: BP 111/66; PULSE 65
[2025-07-10 10:18] VITALS: BP 109/70; PULSE 77
--- NOTE | 2025-07-10 11:15 | PM.DCS ---
Discharge Providers Date of Admission: 07/08/25 08:00 Date of Discharge: July 10, 2025 Attending Provider at Admission: Lorelei Shirley MD Attending Provider at Discharge: Lorelei Shirley MD Primary Care Provider: RAMON Jimenez Diagnoses at Discharge Discharge Diagnosis 1. Delivery by section of full-term infant: Reason for Visit Reason for Visit: possible srom Hospital Course Hospital Course This is a 34-year-old G1 now P1 who had a primary section for nonreassuring heart tones and failure to progress. She has done well postoperatively. She is ambulating, tolerating a regular diet, has good pain control and is comfortable with discharge home. Physical Exam Narrative: Alert and oriented, sitting up in bed, heart regular rate and rhythm, lungs clear to auscultation bilaterally, abdomen is soft with appropriate postoperative tenderness, incision is clean dry and intact with Steri-Strips in place. The right flank has a nickel sized blister that is otherwise clean and intact. Extremities have trace edema and no calf tenderness Urinary Catheter Management: Galindo: Cath Placed During This Visit: yes, but has since been removed by the nurse Reason for Continuing Indwelling Catheter: Decision to DC Catheter Urinary Catheter Date of Insertion: 07/08/25 Urinary Catheter Time of Insertion: 10:50 Date Urinary Catheter Removed: 07/09/25 Time Urinary Catheter Discontinued: 08:30 Discharge Data Studies Completed and Pending Laboratory Results WBC 11.72 10^3/uL (3.29-11.43) H 07/09/25 05:35 RBC 3.44 10^6/uL (3.85-5.65) L 07/09/25 05:35 Hgb 11.20 g/dL (11.27-16.99) L 07/09/25 05:35 Hct 32.3 % (36-47) L 07/09/25 05:35 MCV 93.9 fl (85-98) 07/09/25 05:35 MCH 32.6 pg (27-33) 07/09/25 05:35 MCHC 34.7 g/dL (30-55) 07/09/25 05:35 RDW 13.4 % (12.1-15.1) 07/09/25 05:35 Plt Count 183 10^3/cmm (157-399) 07/09/25 05:35 MPV 10.2 fL (7.4-10.4) 07/09/25 05:35 Neut % (Auto) 79.4 % 07/08/25 01:22 Lymph % (Auto) 11.2 % 07/08/25 01:22 [place] % (Auto) 7.2 % 07/08/25 01:22 Eos % (Auto) 1.3 % 07/08/25 01:22 Baso % (Auto) 0.3 % 07/08/25 01:22 Neut # (Auto) 10.12 10^3/uL (1.8-7.7) H 07/08/25 01:22 Lymph # (Auto) 1.4 10^3/uL (0.8-4.8) 07/08/25 01:22 [place] # (Auto) 0.9 10^3/uL (0.2-0.9) 07/08/25 01:22 Eos # (Auto) 0.2 10^3/uL (0.0-0.8) 07/08/25 01:22 Baso # (Auto) 0.0 10^3/uL (0.0-0.1) 07/08/25 01:22 Nucleated RBC % (auto) 0 % 07/08/25 01:22 Nucleated RBCs # 0.0 /100WBC 07/08/25 01:22 Insulin-like GF I Positive 07/08/25 00:11 Blood Type O Positive 07/08/25 01:22 Rho(D) Type Rh positive 07/08/25 01:22 Antibody Screen Positive 07/08/25 01:22 Antibody Identification Non-Specific Cold Antibody 07/08/25 01:22 Cold Antibody Screen Positive 07/08/25 01:22 Vitals Last Vital Signs Temp 98.0 F 07/09/25 21:15 Pulse 77 07/10/25 10:18 Resp 18 07/09/25 10:00 BP 109/70 07/10/25 10:18 Pulse Ox 100 07/08/25 18:20 O2 Del Method Room Air 07/08/25 01:52 Discharge Plan Discharge Patient Disposition: Home Condition: Stable Prescriptions: New ibuprofen 800 mg Tablet 800 mg PO TID PRN (Reason: Abdominal Discomfort) Qty: 40 0RF hydrocodone-acetaminophen 5-325 mg Tablet 1 - 2 tab PO Q4H PRN (Reason: Moderate To Severe Pain) Qty: 12 0RF docusate sodium 100 mg Capsule 100 mg PO BID Qty: 60 0RF Continued epinephrine [EpiPen 2-Benjie] 0.3 mg/0.3 mL auto-injector 0.3 mg IM Q4H PRN (Reason: anaphylaxis) 30 Days Qty: 2 0RF Rx Instructions: 340B (DME) estradiol 0.02%/testosterone 0.1% See Rx Instructions .Route .MEDSUPPLY Qty: 1 0RF Rx Instructions: Apply pea sized amount daily (right and left side), direction onto entire vestibule. buspirone 10 mg tablet See Rx Instructions .ROUTE .COMPLEX Qty: 45 0RF Dose Instruction: Take 1 tablet by mouth twice daily as needed for anxiety Rx Instructions: Take 1 tablet by mouth twice daily as needed for anxiety levothyroxine 100 mcg tablet See Rx Instructions .ROUTE .COMPLEX Qty: 90 0RF Dose Instruction: Take 1 tablet by mouth once daily Rx Instructions: Take 1 tablet by mouth once daily Discharge Order = DC NOW: Discharge Order (Routine); Ordered 07/10/25 Ordered By: Lorelei Shirley Referrals: Lorelei Shirley MD [Physician, Family Practice] - 07/14/25 1:30 pm Discharge Diet: Usual diet Discharge Activity: Limit activity as instructed Patient Instructions: Depression (DC), Opioid Safety (DC), Preeclampsia and Eclampsia After Delivery (GEN), Hemorrhage (DC), OB - Ferdinand/Fern, OB Discharge Report, OB Food/Drug Interaction Guide, OB Care at Home, Opioid Safety, Patient Portal & Daniel Instructions, Abnormal Bleeding Activity Restrictions/Additional Instructions: Nothing per vagina for 6 weeks. No lifting anything greater than 10 pounds for 2 weeks. Discharge Attestations Time Spent in Discharge Care*: less than 30 min Quality Metrics Clinical Quality Measures [ No reported AMI, CVA or VTE this stay] Coding Level of Care Code Acute Code for Chg Fwd Diagnoses Delivery by section of full-term O82
[2025-07-10 14:52] VITALS: BP 101/59; PULSE 77
[2025-07-10 15:10] VITALS: BP 101/59; PULSE 77; RESP 16; TEMP 36.7; O2SAT 98
== END 2025-07-10 16:20 | disposition home or self-care (01) | DRG 788 ==
PROVIDERS: Admitting Provider Family Medicine; PCP Registered Nurse; Visit Provider Family Medicine
PROC: 10907ZC Drainage of Amniotic Fluid, Therapeutic from Products of Conception, Via Natural or Artificial Opening (ICD-10-PCS; CPT 59514; principal; 2025-07-08 17:00)
DX: O76 Abnormality in fetal heart rate and rhythm complicating labor and delivery (principal); O99.284 Endocrine, nutritional and metabolic diseases complicating childbirth; E03.9 Hypothyroidism, unspecified; O77.0 Labor and delivery complicated by meconium in amniotic fluid; Z3A.40 40 weeks gestation of pregnancy; Z37.0 Single live birth; O48.0 Post-term pregnancy
CPT/HCPCS: 36415; 51702; 59025; 59409; 83986; 84112; 85025; 85027; 86850; 86870; 86900; 99211; J1885; J2274; J2371; J2405; J2540; J2590; J2765; J2795; J3010; J7030; J7040; J7121; J9999